=== PATIENT | female | born 1995 | race Caucasian/White ===

== ENCOUNTER 2019-03-04 13:37 | Emergency (ER) | payer OTHER ==
[~2019-03-04] VITALS: Ht 154.9 cm; Wt 47.7 kg
[2019-03-04 13:53] VITALS: TEMP 98.8
[2019-03-04 14:44] LABS: COLLECTION METHOD CLEAN CATCH
[2019-03-04 14:54] LABS: MUCOUS Present /lpf; PH 7 (5-8); URINE APPEARANCE Clear; URINE BACTERIA Rare /hpf; URINE BILIRUBIN Negative (NEGATIVE); URINE BLOOD 1+ (NEGATIVE); URINE COLOR Yellow; URINE GLUCOSE Negative (NEGATIVE); URINE KETONE 2+ (NEGATIVE); URINE LEUKOCYTE ESTERASE Negative (NEGATIVE); URINE NITRATE Negative (NEGATIVE); URINE PROTEIN(semi-quant) 1+ (NEGATIVE)
[2019-03-04] MEDS ORDERED: ZOFRAN ODT4 MG PO (15:25)
[2019-03-04 16:20] VITALS: BP 101/68; PULSE 77
== END 2019-03-04 16:43 | disposition home or self-care (01) ==
LOC: COL.ER 13:37
PROVIDERS: Physician Assistant
DX: R11.2 Nausea with vomiting, unspecified (principal); E86.0 Dehydration; F12.90 Cannabis use, unspecified, uncomplicated; Z88.1 Allergy status to other antibiotic agents
CPT/HCPCS: J1885; J2405; J2550; J7030

== ENCOUNTER 2019-10-25 11:41 | Emergency (ER) | payer SELFPAY ==
[~2019-10-25] VITALS: Ht 154.9 cm; Wt 50.0 kg
[~2019-10-25 11:41] MED LIST: ZOFRAN ODT4 MG PO
[2019-10-25 11:47] VITALS: TEMP 98.3
[2019-10-25] MEDS ORDERED: EFFEXOR-XR150 MG PO (11:50)
[2019-10-25 12:12] LABS: BASO # 0.1 (0.0-0.2); BASO % 1.3 % (0.0-2.0); EOS # 0.1 (0.0-0.7); EOS % 2.3 % (0-4.0); GRAN # 2.9 (1.4-6.5); GRAN % 55.9 % (42.2-75.2); HEMATOCRIT 38.6 % (37.0-47.0); HEMOGLOBIN 13.8 g/dl (12.5-16.0); LYMPH # 1.7 (1.2-3.4); LYMPH % 32.9 % (20.0-51.0); MEAN CELL VOLUME 91 fl (80.0-100.0); MEAN CORPUSCULAR HEMOGLOBIN 33 pg (27.0-31.0); MEAN CORPUSCULAR HGB CONC 36 g/dl (33.0-37.0); MONO # 0.4 (0.1-0.6); MONO % 7.4 % (1.7-9.3); PLATELET COUNT 268 K/mm3 (130-400); RED BLOOD COUNT 4.25 M/mm3 (4.10-5.30); REDCELL DISTRIBUTION WIDTH-CV 11.8 % (11.5-14.5)
[2019-10-25 12:26] LABS: ALANINE AMINOTRANSFERASE 14 U/L (4-34); ALBUMIN 4.6 gm/dL (3.5-5.0); ALKALINE PHOSPHATASE 69 U/L (50-136); ANION GAP 9 mmol/L (7-16); AST,SGOT 23 U/L (15-37); BILIRUBIN,TOTAL 0.6 mg/dL (0.0-1.0); BLOOD UREA NITROGEN 7 mg/dL (7-17); CALCIUM 9.5 mg/dL (8.4-10.2); CARBON DIOXIDE 25 mmol/L (22-30); CHLORIDE 105 mmol/L (98-107); CREATININE, serum 0.71 (0.52-1.25); GLUCOSE 106 mg/dL (74-106); POTASSIUM 3.5 mmol/L (3.4-5.0); SODIUM 138 mmol/L (137-145); TOTAL PROTEIN 7.8 gm/dL (6.4-8.2)
[2019-10-25 12:29] LABS: C-REACTIVE PROTEIN < 0.5 mg/dL (0.0-0.9)
[2019-10-25 12:54] LABS: COLLECTION METHOD CLEAN CATCH
[2019-10-25 13:02] LABS: MUCOUS Present /lpf; PH 6 (5-8); SQUAMOUS EPITHELIAL 0-2 /hpf; URINE APPEARANCE Cloudy; URINE BACTERIA Rare /hpf; URINE BILIRUBIN Negative (NEGATIVE); URINE BLOOD 3+ (NEGATIVE); URINE COLOR Yellow; URINE GLUCOSE Negative (NEGATIVE); URINE KETONE Trace (NEGATIVE); URINE LEUKOCYTE ESTERASE Negative (NEGATIVE); URINE NITRATE Negative (NEGATIVE); URINE PROTEIN(semi-quant) 1+ (NEGATIVE); URINE RBC >50 /hpf; URINE UROBILINOGEN Negative (NEGATIVE)
[2019-10-25] MEDS ORDERED: ZOFRAN ODT4 MG PO (14:31)
[2019-10-25] MEDS ORDERED: NORCO 325 MG-51 TAB PO (14:31)
[2019-10-25 14:55] VITALS: BP 119/70; PULSE 77
== END 2019-10-25 15:00 | disposition home or self-care (01) ==
LOC: COL.ER 11:41
PROVIDERS: Nurse Practitioner
DX: N20.1 Calculus of ureter (principal); F32.9 Major depressive disorder, single episode, unspecified; Z88.1 Allergy status to other antibiotic agents; Z88.8 Allergy status to other drugs, medicaments and biological substances
CPT/HCPCS: J2270; J2405; J7030

== ENCOUNTER 2019-11-13 23:36 | Emergency (ER) | payer OTHER ==
[~2019-11-13] VITALS: Ht 154.9 cm; Wt 50.0 kg
[~2019-11-13 23:36] MED LIST changes: +EFFEXOR-XR150 MG PO; +NORCO 325 MG-51 TAB PO
[2019-11-13 23:47] VITALS: BP 135/75; TEMP 98.1
[2019-11-14 00:50] VITALS: PULSE 80
== END 2019-11-14 00:51 | disposition home or self-care (01) ==
LOC: COL.ER 23:36
DX: K08.89 Other specified disorders of teeth and supporting structures (principal)

== ENCOUNTER 2020-10-24 21:34 | Emergency (ER) | payer BC ==
[~2020-10-24] VITALS: Ht 154.9 cm; Wt 47.7 kg
[2020-10-24 21:45] VITALS: TEMP 98.1
[2020-10-24] MEDS ORDERED: NORCO 325 MG-51 TAB PO (22:07)
[2020-10-24] MEDS ORDERED: AMOXICILLIN 50500 MG PO (22:07)
[2020-10-24 22:36] VITALS: BP 120/68; PULSE 71
== END 2020-10-24 23:02 | disposition home or self-care (01) ==
LOC: COL.ER 21:34
DX: K02.9 Dental caries, unspecified (principal); Z88.1 Allergy status to other antibiotic agents; Z88.2 Allergy status to sulfonamides

== ENCOUNTER 2020-12-17 19:15 | Emergency (ER) | payer BC ==
[~2020-12-17] VITALS: Ht 154.9 cm; Wt 47.7 kg
[~2020-12-17 19:15] MED LIST changes: +AMOXICILLIN 50500 MG PO
[2020-12-17 19:20] VITALS: TEMP 98.4
[2020-12-17 20:16] LABS: BASO # 0.1 (0.0-0.2); BASO % 0.9 % (0.0-2.0); EOS # 0.3 (0.0-0.7); EOS % 4.7 % (0-4.0); GRAN # 3.5 (1.4-6.5); GRAN % 50.4 % (42.2-75.2); HEMOGLOBIN 11.5 g/dl (12.5-16.0); LYMPH # 2.5 (1.2-3.4); LYMPH % 35.3 % (20.0-51.0); MEAN CELL VOLUME 92 fl (80.0-100.0); MEAN CORPUSCULAR HEMOGLOBIN 31 pg (27.0-31.0); MEAN CORPUSCULAR HGB CONC 34 g/dl (33.0-37.0); MEAN PLATELET VOLUME 9.2 fl (7.4-10.4); MONO # 0.6 (0.1-0.6); MONO % 8.6 % (1.7-9.3); PLATELET COUNT 235 K/mm3 (130-400); RED BLOOD COUNT 3.66 M/mm3 (4.10-5.30); REDCELL DISTRIBUTION WIDTH-CV 12.4 % (11.5-14.5)
[2020-12-17 20:19] LABS: HEMATOCRIT 33.8 % (37.0-47.0)
[2020-12-17 20:25] LABS: ALBUMIN 4.1 gm/dL (3.5-5.0); BILIRUBIN,TOTAL 0.2 mg/dL (0.0-1.0); CALCIUM 9.3 mg/dL (8.4-10.2); CREATININE, serum 0.62 (0.52-1.25); POTASSIUM 3.5 mmol/L (3.4-5.0); TOTAL PROTEIN 7.1 gm/dL (6.4-8.2)
[2020-12-17 21:55] VITALS: BP 111/74; PULSE 79
== END 2020-12-17 21:55 | disposition home or self-care (01) ==
LOC: COL.ER 19:15
PROVIDERS: Emergency Medicine
DX: R10.31 Right lower quadrant pain (principal); Z87.442 Personal history of urinary calculi; Z88.1 Allergy status to other antibiotic agents; Z88.2 Allergy status to sulfonamides
CPT/HCPCS: J1885; J2405; J7030; Q9967

== ENCOUNTER 2022-10-29 10:02 | Emergency (ER) | payer BC ==
[~2022-10-29] VITALS: Ht 154.9 cm; Wt 47.7 kg
[2022-10-29 10:13] VITALS: TEMP 98.6
[2022-10-29 11:02] LABS: COLLECTION METHOD CLEAN CATCH
[2022-10-29 11:10] LABS: ALBUMIN 4.2 gm/dL (3.5-5.0); BILIRUBIN,TOTAL 0.2 mg/dL (0.2-1.2); CALCIUM 9.4 mg/dL (8.4-10.2); CREATININE, serum 0.72 mg/dL (0.57-1.11); TOTAL PROTEIN 7.3 gm/dL (6.2-8.1)
[2022-10-29 11:16] LABS: AMORPHOUS CRYSTAL Present (NOT PRESENT); BUDDING YEAST Present (NOT PRESENT); MUCOUS Present (NOT PRESENT); URINE BACTERIA Rare /hpf (NONE SEEN)
[2022-10-29 11:18] LABS: URINE APPEARANCE Cloudy (CLEAR/HAZY); URINE BLOOD 3+ (NEGATIVE); URINE COLOR Yellow (YELLOW); URINE GLUCOSE Negative (NEGATIVE); URINE KETONE Negative (NEGATIVE); URINE NITRATE Negative (NEGATIVE); URINE PROTEIN(semi-quant) TRACE (NEGATIVE); URINE UROBILINOGEN 0.2 E.U/dL (0.2-1.0)
[2022-10-29 11:52] LABS: BASO # 0.1 K/mm3 (0.0-0.2); BASO % 0.8 % (0.0-2.0); EOS # 0.3 K/mm3 (0.0-0.7); EOS % 4.3 % (0.0-4.0); GRAN # 4.8 K/mm3 (1.4-6.5); GRAN % 62.5 % (42.2-75.2); HEMOGLOBIN 11.8 g/dl (12.5-16.0); MEAN CELL VOLUME 94 fl (80.0-100.0); MEAN CORPUSCULAR HEMOGLOBIN 32 pg (27-31); MEAN CORPUSCULAR HGB CONC 34 g/dl (33.0-37.0); MEAN PLATELET VOLUME 9.2 fl (7.4-10.4); MONO # 0.5 K/mm3 (0.1-0.6); MONO % 6.1 % (1.7-9.3); PLATELET COUNT 211 K/mm3 (130-400); RED BLOOD COUNT 3.69 M/mm3 (4.10-5.30); REDCELL DISTRIBUTION WIDTH-CV 12.3 % (11.5-14.5)
[2022-10-29 11:56] LABS: HEMATOCRIT 34.8 % (37.0-47.0)
[2022-10-29 13:18] VITALS: BP 113/73; PULSE 63
== END 2022-10-29 13:18 | disposition home or self-care (01) ==
LOC: COL.ER 10:02
PROVIDERS: Emergency Medicine; Nurse Practitioner
DX: R55 Syncope and collapse (principal)
CPT/HCPCS: J2405; J7030

== ENCOUNTER 2023-04-25 12:20 | Emergency (ER) | payer BC ==
[~2023-04-25] VITALS: Ht 154.9 cm; Wt 47.7 kg
[2023-04-25 12:50] LABS: HEMATOCRIT 49.6 % (37.0-47.0); HEMOGLOBIN 16.9 g/dl (12.5-16.0); MEAN CELL VOLUME 95 fl (80.0-100.0); MEAN CORPUSCULAR HEMOGLOBIN 32 pg (27-31); MEAN CORPUSCULAR HGB CONC 34 g/dl (33.0-37.0); PLATELET COUNT 380 K/mm3 (130-400); RED BLOOD COUNT 5.25 M/mm3 (4.10-5.30)
[2023-04-25 13:14] LABS: ALANINE AMINOTRANSFERASE 14 U/L (0-55); ALKALINE PHOSPHATASE 69 U/L (40-150); ANION GAP 15 mmol/L (7-16); AST,SGOT 17 U/L (5-34); BILIRUBIN,TOTAL 0.6 mg/dL (0.2-1.2); BLOOD UREA NITROGEN 9 mg/dL (7-19); CALCIUM 10.5 mg/dL (8.4-10.2); CARBON DIOXIDE 18 mmol/L (22-29); CHLORIDE 108 mmol/L (98-107); CREATININE, serum 0.86 mg/dL (0.57-1.11); GLUCOSE 163 mg/dL (70-99); POTASSIUM 3.3 mmol/L (3.5-4.5); SODIUM 141 mmol/L (136-145); TOTAL PROTEIN 8.5 gm/dL (6.2-8.1)
[2023-04-25 13:18] LABS: C-REACTIVE PROTEIN < 0.02 mg/dL (0.00-0.50)
[2023-04-25 13:23] LABS: BAND 6 % (0-10); EOSINOPHIL 1 % (0-4); LYMPHOCYTE 4 % (20.0-51.0); NEUTROPHILS 86 % (42.0-75.2)
[2023-04-25 13:24] LABS: PLATELET ESTIMATE NORMAL (NORMAL)
[2023-04-25 15:00] VITALS: BP 99/67; PULSE 74
[2023-04-25] MEDS ORDERED: ZOFRAN ODT4 MG PO (15:07)
== END 2023-04-25 15:22 | disposition home or self-care (01) ==
LOC: COL.ER 12:20
PROVIDERS: Emergency Medicine
DX: R11.2 Nausea with vomiting, unspecified (principal); E86.0 Dehydration; D72.829 Elevated white blood cell count, unspecified; F17.290 Nicotine dependence, other tobacco product, uncomplicated
CPT/HCPCS: J2405; J7030